=== PATIENT | male | born 1960 | race Hispanic/Latino ===

== ENCOUNTER 2023-10-30 17:55 | Emergency (ER) | payer OTHER, BC ==
[~2023-10-30] VITALS: Ht 170.2 cm; Wt 74.8 kg
[~2023-10-30 17:55] MED LIST: AMLO-258 PO; LISI20TA24 PO; METO-409 PO; TRAZ-187 PO; ZOLP10TA2
[2023-10-30 18:45] LABS: BASOPHILS # (AUTO) 0.05 K/uL (0.00-0.20); BASOPHILS % (AUTO) 0.6 % (0.0-5.0); EOSINOPHILS # (AUTO) 0.12 K/uL (0.00-0.70); EOSINOPHILS % (AUTO) 1.3 % (0.0-8.0); IMMATURE GRANULOCYTE ABSOLUTE 0.04 K/uL (0-1); LYMPHOCYTES # (AUTO) 1.3 K/uL (1.0-4.8); LYMPHOCYTES % (AUTO) 14.6 % (21.0-51.0); MEAN CORPUSCULAR HEMOGLOBIN 31.9 pg (27.0-33.0); MEAN CORPUSCULAR HGB CONC 32.4 g/dL (32.0-36.0); MEAN CORPUSCULAR VOLUME 98.3 fL (79-99); MONOCYTES # (AUTO) 0.5 K/uL (0.1-1.0); MONOCYTES % (AUTO) 5.4 % (3.0-13.0); NEUTROPHILS % (AUTO) 77.7 % (40.0-77.0); PLATELET COUNT (AUTO) 321 K/uL (130-400); RED BLOOD CELL COUNT(AUTO) 2.95 MIL/uL (4.50-6.20); RED CELL DISTRIBUTION WIDTH 14.3 % (11.0-15.5)
[2023-10-30 19:03] LABS: INR <= 0.93 (0.85-1.15); PROTHROMBIN TIME 10.6 SEC (9.6-11.6)
[2023-10-30 19:04] LABS: PARTIAL THROMBOPLASTIN TIME 26.4 SEC (26.3-35.5)
[2023-10-30 19:15] LABS: ALBUMIN 2.5 g/dL (3.5-5.0); BILIRUBIN,TOTAL 0.4 mg/dL (0.2-1.0); POTASSIUM 4.9 mmol/L (3.5-5.1); TOTAL PROTEIN, SERUM 6.3 g/dL (6.0-8.3)
[2023-10-30 19:23] LABS: CREATININE 8.3 mg/dL (0.5-1.5)
[2023-10-30 20:30] LABS: ABG BASE EXCESS 2.6 mmol/L (-2.0-3.0); ABG HCO3 28.2 mmol/L (21.0-28.0); ABG OXYGEN SATURATION 93.6 % (95.0-99.0); ABG PCO2 48 mmHg (35-48); ABG PH 7.385 (7.35-7.450); CARBON MONOXIDE 0.6; DEVICE COMMENT RA; HHb 6.3; VENT MODE, BG RA (ROOM AIR)
[2023-10-30 21:51] LABS: APPEARANCE,URINE CLOUDY (CLEAR); BILIRUBIN,URINE NEGATIVE (NEGATIVE); COLOR,URINE LIGHT-YELLOW (YELLOW); GLUCOSE, URINE (UA) 300 mg/dL (NEGATIVE); KETONES,URINE NEGATIVE (NEGATIVE); LEUKOCYTE ESTERASE ,URINE NEGATIVE Leu/uL (NEGATIVE); NITRATE,URINE NEGATIVE (NEGATIVE); PROTEIN,URINE 600 mg/dL (NEGATIVE); UROBILINOGEN,URINE 0.2 mg/dL (0.2-1.0)
[2023-10-30 21:53] LABS: ADD UA MICROSCOPIC YES
[2023-10-30 21:56] VITALS: BP 128/61; PULSE 50; RESP 17; O2SAT 96
[2023-10-30 21:56] LABS: BACTERIA,URINE RARE /HPF (None Seen); MUCUS,URINE RARE LPF (None Seen); OTHER CASTS, URINE 1 /LPF (None Seen)
== END 2023-10-31 00:01 ==
LOC: EDH 17:55
DX: R41.82 Altered mental status, unspecified (principal); E11.22 Type 2 diabetes mellitus with diabetic chronic kidney disease; N18.6 End stage renal disease; E87.1 Hypo-osmolality and hyponatremia; R47.01 Aphasia; Z79.899 Other long term (current) drug therapy; Z98.890 Other specified postprocedural states; Z88.0 Allergy status to penicillin
CPT/HCPCS: 36415; 36600; 70450; 71045; 80053; 81001; 82140; 82435; 82550; 82803; 82947; 83605; 84132; 84295; 84484; 85018; 85025; 85610; 85730; 87040; 87088; 93005

== ENCOUNTER 2024-12-12 15:38 | Inpatient (IN) | payer MEDICARE ==
[~2024-12-12] VITALS: Ht 165.1 cm; Wt 79.8 kg
[2024-12-12 16:36] LABS: BASOPHILS # (AUTO) 0.02 K/uL (0.00-0.20); BASOPHILS % (AUTO) 0.5 % (0.0-5.0); EOSINOPHILS # (AUTO) 0.13 K/uL (0.00-0.70); EOSINOPHILS % (AUTO) 3.2 % (0.0-8.0); IMMATURE GRANULOCYTE ABSOLUTE 0.02 K/uL (0-1); MEAN CORPUSCULAR HEMOGLOBIN 34.5 pg (27.0-33.0); MEAN CORPUSCULAR HGB CONC 32.2 g/dL (32.0-36.0); MONOCYTES # (AUTO) 0.3 K/uL (0.1-1.0); MONOCYTES % (AUTO) 8.2 % (3.0-13.0); NEUTROPHILS # (AUTO) 2.6 K/uL (1.8-7.7); NEUTROPHILS % (AUTO) 63.6 % (40.0-77.0); NUCLEATED RED BLOOD CELLS 1.7 % (0.0-0.19); PLATELET COUNT (AUTO) 148 K/uL (130-400); RED BLOOD CELL COUNT(AUTO) 1.71 MIL/uL (4.50-6.20); RED CELL DISTRIBUTION WIDTH 13.8 % (11.0-15.5)
[2024-12-12 16:46] LABS: INR 1.03 (0.85-1.15); PROTHROMBIN TIME 10.9 SEC (9.6-11.6)
[2024-12-12 16:47] LABS: PARTIAL THROMBOPLASTIN TIME 22.7 SEC (26.3-35.5)
[2024-12-12 16:50] LABS: HEMATOCRIT 18.3 % (42-54)
[2024-12-12 16:51] LABS: POTASSIUM 4.6 mmol/L (3.5-5.1)
[2024-12-12 16:54] LABS: CREATININE 8.8 mg/dL (0.5-1.3)
--- NOTE | 2024-12-12 17:38 | ERN ---
General Chief Complaint: Abnormal Labs Stated Complaint: LOW HEMOGLOBIN Time Seen by MD: 15:40 History of Present Illness Initial Comments 64-year-old male, history of stroke without deficit, hypertension, diabetes, ESRD on dialysis Monday, sent in by Dr. Stone (sql etl developer) for anemia. I was told he has a hemoglobin of 5.3. Patient does report he has been feeling fatigued and winded over the last few weeks. He denies any melena or other bleeding. He does report a history of anemia but has never required transfusions before. Allergies: Coded Allergies: Penicillins (Verified Allergy, Unknown, 08/29/16) Home Meds Reported Medications Amlodipine Besylate (Amlodipine Besylate) 10 Mg Tablet, 1 TAB PO HS 09/18/23 Metoprolol Succinate (Metoprolol Succinate) 100 Mg Tab.er.24h, 1 TAB PO DAILY 09/18/23 Zolpidem Tartrate (Ambien) 10 Mg Tablet, 10 MG HS for INSOMNIA 09/18/23 Lisinopril (Lisinopril) 20 Mg Tablet, 40 MG PO DAILY, TAB 03/06/23 Trazodone HCl (Trazodone HCl) 100 Mg Tablet, 100 MG PO HS, TAB TAKE 1 AND 1/2 TABLET AT HS 03/22/22 Past Medical History Past Medical History: A-Fib, CVA, Diabetes-Type II, High Cholesterol, Hypertension Medical History Other: CKD ON DIALYSIS, MYOPIA, MUSCLE WEAKNESS Past Surgical History: Other, LAVA Surgical History Other: NEPHRECTOMY ROS Dictation CONSTITUTIONAL: Generalized weakness fatigue HEAD/FACE: No signs of trauma. EENT: No eye pain, no blurred vision, no tearing, no double vision, no ear pain, no ear discharge, no nose pain, no nasal congestion, no throat pain, no throat swelling, no mouth pain. RESPIRATORY: Mild dyspnea CARDIOVASCULAR: No chest pain, no edema, no palpitations, no syncope. GASTROINTESTINAL/ABDOMINAL: No abdominal pain, no constipation, no diarrhea, no nausea, no vomiting. GENITOURINARY: No abnormal discharge, no dysuria, no frequent urination, no hematuria. No complaints of pain in the genitals. MUSCULOSKELETAL: No back pain, no gout, no joint pain, no joint swelling, no muscle pain, no muscle stiffness, no neck pain. INTEGUMENTARY: No change in color, no change in hair/nails, no dryness, no lesion, no lumps, no rash. NEUROLOGICAL/PSYCH: No anxiety, not depressed, no emotional problem, no headache, no numbness, no pre-existing deficit, no history of seizures, no tremors, no weakness. HEMATOLOGIC/LYMPHATIC: Not anemic, no history of blood clots, no apparent bleeding, no bruising, glands not swollen. All Systems Negative, Except as Noted. Physical Exam Physical Exam Dictation VITAL SIGNS: Reviewed. GENERAL APPEARANCE: Alert, oriented x3, no acute distress HEAD AND FACE: Non-traumatic. EYES: PERRL, pink conjunctivas, eyelid no trauma, anterior chamber clear. EARS: Pinnas intact and no signs of trauma or erythema. Ear canals clear and no discharge. TMs no erythema. NOSE: No discharge, no bleeding. OROPHARYNX: Mouth normal, teeth no caries, tongue pink. Pharynx clear, no erythema. Tonsils no exudates, no abscesses noted. Mucous membrane moist. NECK: Supple, non-tender, no thyromegaly, no masses, no JVD, no bruits. BREAST: Deferred. CHEST: No tenderness, no crepitus, no paradoxical movement, no retractions. LUNGS: Clear, well-ventilated, symmetric, no rales, no wheezing, no rhonchi, no stridor, good breath sounds bilaterally. HEART: Regular rate, regular rhythm, no murmur, no gallops. VASCULAR: No peripheral edema. ABDOMEN: Soft, positive bowel sounds, nondistended, no guarding, nontender, no rebound, no masses no hepatomegaly, no splenomegaly, no Doyle's sign, no hernias. RECTAL: Deferred. GENITAL: Deferred. NEUROLOGICAL: Normal speech, gross motor function intact, gross sensory function intact. MUSCULOSKELETAL: Neck nontender, full range of motion, back nontender, full range of motion. EXTREMITIES: Nontender, full range of motion. SKIN: Color pink, dry, no turgor, no rash, no lacerations, no abrasions, no contusions. LYMPHATICS: Deferred. Results Laboratory and Microbiology Lab and Micro Result Laboratory Tests Test 12/12/24 16:23 White Blood Count 4.0 K/uL (4.8-10.8) L Red Blood Count 1.71 MIL/uL (4.50-6.20) L Hemoglobin 5.9 g/dL (14.0-18.0) *L Hematocrit 18.3 % (42-54) *L Mean Corpuscular Volume 107.0 fL (79-99) H Mean Corpuscular Hemoglobin 34.5 pg (27.0-33.0) H Mean Corpuscular Hemoglobin Concent 32.2 g/dL (32.0-36.0) Red Cell Distribution Width 13.8 % (11.0-15.5) Platelet Count 148 K/uL (130-400) Mean Platelet Volume 9.5 fL (7.5-10.5) Immature Granulocyte % (Auto) 0.5 % (0-1) Neutrophils (%) (Auto) 63.6 % (40.0-77.0) Lymphocytes (%) (Auto) 24.0 % (21.0-51.0) Monocytes (%) (Auto) 8.2 % (3.0-13.0) Eosinophils (%) (Auto) 3.2 % (0.0-8.0) Basophils (%) (Auto) 0.5 % (0.0-5.0) Neutrophils # (Auto) 2.6 K/uL (1.8-7.7) Lymphocytes # (Auto) 1.0 K/uL (1.0-4.8) Monocytes # (Auto) 0.3 K/uL (0.1-1.0) Eosinophils # (Auto) 0.13 K/uL (0.00-0.70) Basophils # (Auto) 0.02 K/uL (0.00-0.20) Absolute Immature Granulocyte (auto 0.02 K/uL (0-1) Nucleated Red Blood Cells 1.7 % (0.0-0.19) H Red Blood Cell Morphology See comments Prothrombin Time 10.9 SEC (9.6-11.6) Prothromb Time International Ratio 1.03 (0.85-1.15) Activated Partial Thromboplast Time 22.7 SEC (26.3-35.5) L Sodium Level 135 mmol/L (136-145) L Potassium Level 4.6 mmol/L (3.5-5.1) Chloride Level 97 mmol/L (101-111) L Carbon Dioxide Level 34 mmol/L (21-32) H Blood Urea Nitrogen 31 mg/dL (7-18) H Creatinine 8.8 mg/dL (0.5-1.3) *H Glomerular Filtration Rate Calc 6 mL/min (>90) Random Glucose 117 mg/dL (70-105) H Total Calcium 8.3 mg/dL (8.5-10.1) L MDM CC: Fatigue and weakness low hemoglobin Historian: Patient Comorbidities: AFib, CVA, dm two, DLD, HTN, CKD on dialysis Limitations by social determinants of health: None Differential diagnosis: Anemia, electrolyte abnormalities, other. Vital signs: Stable, remained stable in the ER Labs (independently ordered and interpreted by me): Macrocytic anemia hemoglobin 5.9. Otherwise CBC is stable. Coags are stable. Electrolytes stable. Creatinine 8.8 baseline for dialysis. EKG: Sinus rhythm rate of 59 normal axis good R-wave progression intervals stable no STEMI. Independently interpreted by me Treatment in ED: 2 units PRBC. Plan: We will admit for anemia workup, transfusion. Patient may need dialysis tomorrow. Consultation: Hospitalist for admission. ED Course Orders Procedure Category Date Status Time Cbc With Differential LAB 12/12/24 Complete 15:57 Basic Metabolic Panel LAB 12/12/24 Complete 15:57 Prothrombin Time With LAB 12/12/24 Complete INR 15:57 Partial LAB 12/12/24 Complete Thromboplastin Time 15:57 Occult Blood Stool LAB 12/12/24 Logged Single Only 15:57 Type And Screen BBK 12/12/24 In Process 16:14 Rbc-Active Bleeding BBK 12/12/24 In Process 17:13 12 Lead Ekg Tracing- EKG 12/12/24 Logged Technical 17:38 Vital Signs Date Time Temp Pulse Resp B/P (MAP) Pulse Ox O2 Delivery O2 Flow Rate FiO2 12/12/24 17:24 98.4 64 18 153/69 98 Room Air* 0 21 12/12/24 15:40 98.4 62 16 149/82 98 Room Air 0 DX & DISP Disposition: Inpatient Departure Impression: Primary Impression: Anemia requiring transfusions Additional Impression: ESRD on dialysis Critical Time: 30 minutes (Critical Care Procedure NoteAuthorized and Performed by: meTotal critical care time: Approximately 36 minutesDue to a high p robability of clinically significant, life threatening deterioration, the patient required my highest level of preparedness to intervene emergently and I personally spent this critical care time directly and personally managing the patient. This critical care time included obtaining a history; examining the patient; pulse oximetry; ordering and review of studies; arranging urgent t reatment with development of a management plan; evaluation of patient's response to treatment; frequent reassessment; and, discussions with other providers.This critical care time was performed to assess and manage the high probability of imminent, life-threatening deterioration that could result in multi-organ failure. It was exclusive of separately billable procedures and treating other patients and teaching time.Please see MDM section and the rest of the note for further information on patient assessment and treatment.) Condition: Stable Referrals: WALLY BYERS MD (PCP) HEENA AMAYA DO Dec 12, 2024 17:38
--- NOTE | 2024-12-12 19:20 | NUR ---
BLOOD TRANSFUSION DONE AT THIS TIME.
--- NOTE | 2024-12-12 19:55 | NUR ---
2ND UNIT OF BLOOD TRANSFUSION STARTED AT THIS TIME. PLS REFER TO BLOOF TRANSFUSION RECORD
[2024-12-12 22:47] LABS: FERRITIN 876 ng/mL (30-400)
--- NOTE | 2024-12-12 22:56 | HP ---
HISTORY AND PHYSICAL NOTE DATE OF CONSULTATION: 12/12/24 REASON FOR CONSULTATION: Weakness HISTORY OF PRESENT ILLNESS: 64-year-old male, history of stroke without deficit, hypertension, diabetes, ESRD on dialysis Monday, sent in by Dr. Stone (postpartum nurse) for anemia. I was told he has a hemoglobin of 5.3. Patient does report he has been feeling fatigued and winded over the last few weeks. He denies any melena or other bleeding. He does report a history of anemia but has never required transfusions before. Allergies: Coded Allergies: Penicillins (Verified Allergy, Unknown, 08/29/16) Home Meds Reported Medications Amlodipine Besylate (Amlodipine Besylate) 10 Mg Tablet, 1 TAB PO HS 09/18/23 Metoprolol Succinate (Metoprolol Succinate) 100 Mg Tab.er.24h, 1 TAB PO DAILY 09/18/23 Zolpidem Tartrate (Ambien) 10 Mg Tablet, 10 MG HS for INSOMNIA 09/18/23 Lisinopril (Lisinopril) 20 Mg Tablet, 40 MG PO DAILY, TAB 03/06/23 Trazodone HCl (Trazodone HCl) 100 Mg Tablet, 100 MG PO HS, TAB TAKE 1 AND 1/2 TABLET AT HS 03/22/22 Past History Past Medical History Past Medical History: A-Fib, CVA, Diabetes-Type II, High Cholesterol, Hypertension Medical History Other: CKD ON DIALYSIS, MYOPIA, MUSCLE WEAKNESS Past Surgical History: Other, LAVA Surgical History Other: NEPHRECTOMY Review of Systems ROS Dictation CONSTITUTIONAL: Generalized weakness fatigue HEAD/FACE: No signs of trauma. EENT: No eye pain, no blurred vision, no tearing, no double vision, no ear pain, no ear discharge, no nose pain, no nasal congestion, no throat pain, no throat swelling, no mouth pain. RESPIRATORY: Mild dyspnea CARDIOVASCULAR: No chest pain, no edema, no palpitations, no syncope. GASTROINTESTINAL/ABDOMINAL: No abdominal pain, no constipation, no diarrhea, no nausea, no vomiting. GENITOURINARY: No abnormal discharge, no dysuria, no frequent urination, no hematuria. No complaints of pain in the genitals. MUSCULOSKELETAL: No back pain, no gout, no joint pain, no joint swelling, no muscle pain, no muscle stiffness, no neck pain. INTEGUMENTARY: No change in color, no change in hair/nails, no dryness, no lesion, no lumps, no rash. NEUROLOGICAL/PSYCH: No anxiety, not depressed, no emotional problem, no headache, no numbness, no pre-existing deficit, no history of seizures, no tremors, no weakness. HEMATOLOGIC/LYMPHATIC: Not anemic, no history of blood clots, no apparent bleeding, no bruising, glands not swollen. All Systems Negative, Except as Noted. ALLERGIES: Coded Allergies: Penicillins (Verified Allergy, Unknown, 08/29/16) HOME MEDS: Reported Medications Amlodipine Besylate (Amlodipine Besylate) 10 Mg Tablet, 1 TAB PO HS 09/18/23 Metoprolol Succinate (Metoprolol Succinate) 100 Mg Tab.er.24h, 1 TAB PO DAILY 09/18/23 Zolpidem Tartrate (Ambien) 10 Mg Tablet, 10 MG HS for INSOMNIA 09/18/23 Lisinopril (Lisinopril) 20 Mg Tablet, 40 MG PO DAILY, TAB 03/06/23 Trazodone HCl (Trazodone HCl) 100 Mg Tablet, 100 MG PO HS, TAB TAKE 1 AND 1/2 TABLET AT HS 03/22/22 VITAL SIGNS Vital Signs Date Time Temp Pulse Resp B/P (MAP) Pulse Ox O2 Delivery O2 Flow Rate FiO2 12/12/24 19:59 98.2 60 15 165/78 97 Room Air* 0 12/12/24 19:55 98.1 61 16 156/73 97 Room Air* 0 12/12/24 18:10 97.9 65 16 157/82 98 Room Air* 0 12/12/24 17:24 98.4 64 18 153/69 98 Room Air* 0 12/12/24 15:40 98.4 62 16 149/82 98 Room Air 0 PHYSICAL EXAM Physical Exam Physical Exam Physical Exam Dictation VITAL SIGNS: Reviewed. GENERAL APPEARANCE: Alert, oriented x3, no acute distress HEAD AND FACE: Non-traumatic. EYES: PERRL, pink conjunctivas, eyelid no trauma, anterior chamber clear. EARS: Pinnas intact and no signs of trauma or erythema. Ear canals clear and no discharge. TMs no erythema. NOSE: No discharge, no bleeding. OROPHARYNX: Mouth normal, teeth no caries, tongue pink. Pharynx clear, no erythema. Tonsils no exudates, no abscesses noted. Mucous membrane moist. NECK: Supple, non-tender, no thyromegaly, no masses, no JVD, no bruits. BREAST: Deferred. CHEST: No tenderness, no crepitus, no paradoxical movement, no retractions. LUNGS: Clear, well-ventilated, symmetric, no rales, no wheezing, no rhonchi, no stridor, good breath sounds bilaterally. HEART: Regular rate, regular rhythm, no murmur, no gallops. VASCULAR: No peripheral edema. ABDOMEN: Soft, positive bowel sounds, nondistended, no guarding, nontender, no rebound, no masses no hepatomegaly, no splenomegaly, no Doyle's sign, no her nias. RECTAL: Deferred. GENITAL: Deferred. NEUROLOGICAL: Normal speech, gross motor function intact, gross sensory function intact. MUSCULOSKELETAL: Neck nontender, full range of motion, back nontender, full range of motion. EXTREMITIES: Nontender, full range of motion. SKIN: Color pink, dry, no turgor, no rash, no lacerations, no abrasions, no contusions. LYMPHATICS: Deferred. LABORATORY RESULTS Laboratory Tests 12/12/24 16:23: White Blood Count 4.0, Red Blood Count 1.71, Hemoglobin 5.9, Hematocrit 18.3, Mean Corpuscular Volume 107.0, Mean Corpuscular Hemoglobin 34.5, Mean Corpuscu lar Hemoglobin Concent 32.2, Red Cell Distribution Width 13.8, Platelet Count 148, Mean Platelet Volume 9.5, Immature Granulocyte % (Auto) 0.5, Neutrophils (%) (Auto) 63.6, Lymphocytes (%) (Auto) 24.0, Monocytes (%) (Auto) 8.2, Eosinophils (%) (Auto) 3.2, Basophils (%) (Auto) 0.5, Neutrophils # (Auto) 2.6, Lymphocytes # (Auto) 1.0, Monocytes # (Auto) 0.3, Eosinophils # (Auto) 0.13, Basophils # (Auto) 0.02, Absolute Immature Granulocyte (auto 0.02, Nucleated Red Blood Cells 1.7, Red Blood Cell Morphology See comments, Prothrombin Time 10.9, Prothromb Time International Ratio 1.03, Activated Partial Thromboplast Time 22.7, Sodium Level 135, Potassium Level 4.6, Chloride Level 97, Carbon Dioxide Level 34, Blood Urea Nitrogen 31, Creatinine 8.8, Glomerular Filtration Rate Calc 6, Random Glucose 117, Total Calcium 8.3, Ferritin 876, Vitamin B12 Level 657 PROBLEM LIST: (1) Hyponatremia ICD Codes: E87.1 - Hypo-osmolality and hyponatremia (2) End stage renal disease on dialysis ICD Codes: N18.6 - End stage renal disease; Z99.2 - Dependence on renal dialysis (3) ESRD on dialysis ICD Codes: N18.6 - End stage renal disease; Z99.2 - Dependence on renal dialysis (4) Anemia requiring transfusions ICD Codes: D64.9 - Anemia, unspecified; Z99.2 - Dependence on renal dialysis PLAN Transfuse blood Consult Nephrology Sliding scale for diabetes Resume home medications for hypertension WALLY BYERS MD Dec 12, 2024 22:56
[2024-12-12] MEDS ORDERED: AMLO-257 PO (22:58)
[2024-12-12] MEDS ORDERED: LEVE-43 PO (22:58)
[2024-12-12] MEDS ORDERED: FAMO20TA8 PO (22:58)
[2024-12-12] MEDS ORDERED: TRAZ-185 PO (22:58)
[2024-12-12] MEDS ORDERED: CARB15DR OP (22:58)
[2024-12-12] MEDS ORDERED: FOLI0.8T22 PO (22:58)
[2024-12-12] MEDS ORDERED: LISI40TA9 PO (22:58)
[2024-12-12] MEDS ORDERED: CHOL100046 PO (22:58)
[2024-12-12] MEDS ORDERED: ACET-2079 PO (22:58)
[2024-12-12] MEDS ORDERED: MELA3CAP2 PO (22:58)
[2024-12-12] MEDS ORDERED: PRED5DRO25 OS (22:58)
[2024-12-12] MEDS ORDERED: INSU3INS3 SQ (22:58)
[2024-12-12] MEDS ORDERED: DONE5TAB5 PO (22:58)
[2024-12-12] MEDS ORDERED: LACT10SO85 PO (22:58)
[2024-12-12] MEDS ORDERED: CLON0.1T PO (22:58)
[2024-12-12] MEDS ORDERED: ASPI-1197 PO (22:58)
[2024-12-12] MEDS ORDERED: METO100T14 PO (22:58)
[2024-12-12] MEDS ORDERED: ATOR10TA69 PO (22:58)
[2024-12-12] MEDS ORDERED: BENZ1LOZ81 PO (22:58)
[2024-12-12] MEDS ORDERED: ACET-3859 PO (22:58)
[2024-12-12] MEDS ORDERED: SEVE800PW PO (22:58)
[2024-12-12] MEDS ORDERED: CALC500T13 PO (22:58)
[2024-12-12] MEDS ORDERED: GUAI100S72 PO (22:58)
--- NOTE | 2024-12-12 23:30 | NUR ---
BLOOD TRANSFUSION DONE AT THIS TIME
[2024-12-13] VITALS (17 sets, daily range): BP systolic 130–162; BP diastolic 43–70; PULSE 47–78; RESP 16; TEMP 97.4–98; O2SAT 97
[2024-12-13 05:52] LABS: BASOPHILS # (AUTO) 0.02 K/uL (0.00-0.20); BASOPHILS % (AUTO) 0.4 % (0.0-5.0); EOSINOPHILS # (AUTO) 0.14 K/uL (0.00-0.70); EOSINOPHILS % (AUTO) 2.6 % (0.0-8.0); HEMATOCRIT 24.8 % (42-54); IMMATURE GRANULOCYTE ABSOLUTE 0.03 K/uL (0-1); LYMPHOCYTES # (AUTO) 1.2 K/uL (1.0-4.8); LYMPHOCYTES % (AUTO) 21.6 % (21.0-51.0); MEAN CORPUSCULAR HEMOGLOBIN 32.9 pg (27.0-33.0); MEAN CORPUSCULAR HGB CONC 32.7 g/dL (32.0-36.0); MEAN CORPUSCULAR VOLUME 100.8 fL (79-99); MONOCYTES # (AUTO) 0.4 K/uL (0.1-1.0); MONOCYTES % (AUTO) 7.1 % (3.0-13.0); NEUTROPHILS # (AUTO) 3.7 K/uL (1.8-7.7); NEUTROPHILS % (AUTO) 67.7 % (40.0-77.0); NUCLEATED RED BLOOD CELLS 0.4 % (0.0-0.19); PLATELET COUNT (AUTO) 147 K/uL (130-400); RED BLOOD CELL COUNT(AUTO) 2.46 MIL/uL (4.50-6.20); RED CELL DISTRIBUTION WIDTH 16.3 % (11.0-15.5); WHITE BLOOD COUNT (AUTO) 5.4 K/uL (4.8-10.8)
[2024-12-13 06:14] LABS: ALBUMIN 3.8 g/dL (3.5-5.0); BILIRUBIN,TOTAL 0.8 mg/dL (0.2-1.0); POTASSIUM 5.3 mmol/L (3.5-5.1); TOTAL PROTEIN, SERUM 6.9 g/dL (6.0-8.3)
[2024-12-13 06:20] LABS: CREATININE 10.1 mg/dL (0.5-1.3)
--- NOTE | 2024-12-13 07:10 | EKG ---
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
--- NOTE | 2024-12-13 10:18 | NUR ---
DCP: RETURN TO [facility] Pt lives with his parents Dania Call [address] and Andre [address] [phone]. Pt wears hearing aids and did not bring with him. Per mother, pt is not working, is independent of self care and drives. Uses no DME or in home care services at this time. [facility], but pt has never been. Uses [facility] for rx. Per mother, pt will return home with family at [place] Addendum: 12/13/24 at 1243 by ERIC GOLDMAN PLEASE DISREGARD NOTE- WRONG PT
--- NOTE | 2024-12-13 10:19 | HMCIMG ---
Exam Type: CT ABDOMEN/PELVIS W/O CONTRAST Clinical Information: HX KIDNEY CANCER Comparison: March 08, 2023 CT Dose Index (CTDI): 10.20 mGy Dose Length Product (DLP): 530.00 total mGy-cm PROTOCOL: Routine noncontrast helical scanning of the abdomen and pelvis was performed at 5mm collimation. Findings: The right kidney is atrophic but otherwise unremarkable. The left kidney surgically absent. The lung bases are clear. The stomach is unremarkable. It shows no wall thickening. No gross ulceration is seen. It is not overly distended. There are no surrounding inflammatory changes. No wall lesions are identified to suggest cancer. The spleen is unremarkable. It is not enlarged. The pancreas again demonstrates a partially calcified lesion inferior to the tail region measuring at least 4.3 cm, probably representing a calcified pancreatic pseudocyst. This is stable since the examination of March 08, 2023. The gallbladder is unremarkable. It shows no cholelithiasis. The gallbladder wall is normal in thickness. There is no pericholecystic fluid. The is no acute or chronic inflammation noted. The adrenal glands are unremarkable. There is no enlargement. No lesions are noted. The liver is unremarkable. It shows no focal masses. The appendix is unremarkable. It shows no evidence of inflammation. No appendicolith is seen. The small bowel is unremarkable. There is no evidence of dilatation to suggest obstruction. No evidence of adynamic ileus is seen. There is no small bowel wall thickening to suggest enteritis. The colon is unremarkable. The urinary bladder is unremarkable. There is no wall thickening to suggest tumor or inflammation. There are no intraluminal calculi. There are no diverticula. There is no evidence of chronic bladder outlet obstruction. There is no evidence of urinary bladder distention to suggest urinary retention. The prostate is prominent. The bony and vascular structures are unremarkable for the patient's age. IMPRESSION: The pancreas again demonstrates a partially calcified lesion inferior to the tail region measuring at least 4.3 cm, probably representing a calcified pancreatic pseudocyst. This is stable since the examination of March 08, 2023. Other findings as described. This study was performed using dose reduction techniques to include automated exposure control and/or adjustment of the mA and/or kV according to patient size.
[2024-12-13] MEDS: ASPIRIN 81MG CHEW TAB ONE (10:23)
[2024-12-13] MEDS: amLODIPine 5 MG TAB ONE (10:23)
[2024-12-13] MEDS: FAMOTIDINE 20MG TAB ONE (10:23)
[2024-12-13] MEDS ORDERED: LACTULOSE 20 GM/30 ML UDCUP PO PRN (10:30)
[2024-12-13] MEDS ORDERED: cloNIDine HCL 0.1 MG TABLET PO PRN (10:30)
[2024-12-13] MEDS ORDERED: NON-FORMULARY MEDICATION 1 EACH (Carboxymethylcellulose Sodium (Refresh Tears) 1 DROP) OP PRN (10:30)
--- NOTE | 2024-12-13 12:34 | PN ---
PROGRESS NOTE PROGRESS NOTE DATE OF PROGRESS NOTE: 12/13/24 SUBJECTIVE: No obvious GI bleed or any bruising to account for loss of blood VITAL SIGNS Vital Signs Date Time Temp Pulse Resp B/P (MAP) Pulse Ox O2 Delivery O2 Flow Rate FiO2 12/13/24 11:05 98.2 68 16 123/55 97 Room Air* 0 21 PHYSICAL EXAM: Physical Exam Physical Exam Physical Exam Dictation VITAL SIGNS: Reviewed. GENERAL APPEARANCE: Alert, oriented x3, no acute distress HEAD AND FACE: Non-traumatic. EYES: PERRL, pink conjunctivas, eyelid no trauma, anterior chamber clear. EARS: Pinnas intact and no signs of trauma or erythema. Ear canals clear and no discharge. TMs no erythema. NOSE: No discharge, no bleeding. OROPHARYNX: Mouth normal, teeth no caries, tongue pink. Pharynx clear, no erythema. Tonsils no exudates, no abscesses noted. Mucous membrane moist. NECK: Supple, non-tender, no thyromegaly, no masses, no JVD, no bruits. BREAST: Deferred. CHEST: No tenderness, no crepitus, no paradoxical movement, no retractions. LUNGS: Clear, well-ventilated, symmetric, no rales, no wheezing, no rhonchi, no stridor, good breath sounds bilaterally. HEART: Regular rate, regular rhythm, no murmur, no gallops. VASCULAR: No peripheral edema. ABDOMEN: Soft, positive bowel sounds, nondistended, no guarding, nontender, no rebound, no masses no hepatomegaly, no splenomegaly, no Doyle's sign, no hernias. RECTAL: Deferred. GENITAL: Deferred. NEUROLOGICAL: Normal speech, gross motor function intact, gross sensory function intact. MUSCULOSKELETAL: Neck nontender, full range of motion, back nontender, full range of motion. EXTREMITIES: Nontender, full range of motion. SKIN: Color pink, dry, no turgor, no rash, no lacerations, no abrasions, no contusions. LYMPHATICS: Deferred. LABORATORY: Laboratory Result(s) Test 12/12/24 16:23 12/13/24 05:20 White Blood Count 4.0 K/uL (4.8-10.8) 5.4 K/uL (4.8-10.8) Red Blood Count 1.71 MIL/uL (4.50-6.20) 2.46 MIL/uL (4.50-6.20) Hemoglobin 5.9 g/dL (14.0-18.0) 8.1 g/dL (14.0-18.0) Hematocrit 18.3 % (42-54) 24.8 % (42-54) Mean Corpuscular Volume 107.0 fL (79-99) 100.8 fL (79-99) Mean Corpuscular Hemoglobin 34.5 pg (27.0-33.0) 32.9 pg (27.0-33.0) Mean Corpuscular Hemoglobin Concent 32.2 g/dL (32.0-36.0) 32.7 g/dL (32.0-36.0) Red Cell Distribution Width 13.8 % (11.0-15.5) 16.3 % (11.0-15.5) Platelet Count 148 K/uL (130-400) 147 K/uL (130-400) Mean Platelet Volume 9.5 fL (7.5-10.5) 9.7 fL (7.5-10.5) Immature Granulocyte % (Auto) 0.5 % (0-1) 0.6 % (0-1) Neutrophils (%) (Auto) 63.6 % (40.0-77.0) 67.7 % (40.0-77.0) Lymphocytes (%) (Auto) 24.0 % (21.0-51.0) 21.6 % (21.0-51.0) Monocytes (%) (Auto) 8.2 % (3.0-13.0) 7.1 % (3.0-13.0) Eosinophils (%) (Auto) 3.2 % (0.0-8.0) 2.6 % (0.0-8.0) Basophils (%) (Auto) 0.5 % (0.0-5.0) 0.4 % (0.0-5.0) Neutrophils # (Auto) 2.6 K/uL (1.8-7.7) 3.7 K/uL (1.8-7.7) Lymphocytes # (Auto) 1.0 K/uL (1.0-4.8) 1.2 K/uL (1.0-4.8) Monocytes # (Auto) 0.3 K/uL (0.1-1.0) 0.4 K/uL (0.1-1.0) Eosinophils # (Auto) 0.13 K/uL (0.00-0.70) 0.14 K/uL (0.00-0.70) Basophils # (Auto) 0.02 K/uL (0.00-0.20) 0.02 K/uL (0.00-0.20) Absolute Immature Granulocyte (auto 0.02 K/uL (0-1) 0.03 K/uL (0-1) Nucleated Red Blood Cells 1.7 % (0.0-0.19) 0.4 % (0.0-0.19) Red Blood Cell Morphology See comments Prothrombin Time 10.9 SEC (9.6-11.6) Prothromb Time International Ratio 1.03 (0.85-1.15) Activated Partial Thromboplast Time 22.7 SEC (26.3-35.5) Sodium Level 135 mmol/L (136-145) 138 mmol/L (136-145) Potassium Level 4.6 mmol/L (3.5-5.1) 5.3 mmol/L (3.5-5.1) Chloride Level 97 mmol/L (101-111) 101 mmol/L (101-111) Carbon Dioxide Level 34 mmol/L (21-32) 29 mmol/L (21-32) Blood Urea Nitrogen 31 mg/dL (7-18) 36 mg/dL (7-18) Creatinine 8.8 mg/dL (0.5-1.3) 10.1 mg/dL (0.5-1.3) Glomerular Filtration Rate Calc 6 mL/min (>90) 5 mL/min (>90) Random Glucose 117 mg/dL (70-105) 107 mg/dL (70-105) Total Calcium 8.3 mg/dL (8.5-10.1) 8.5 mg/dL (8.5-10.1) Ferritin 876 ng/mL (30-400) Vitamin B12 Level 657 pg/mL (193-986) Vitamin D 25-Hydroxy 48.7 ng/mL (30.0-100.0) Total Bilirubin 0.8 mg/dL (0.2-1.0) Aspartate Amino Transf (AST/SGOT) 34 U/L (10-37) Alanine Aminotransferase (ALT/SGPT) 29 U/L (12-78) Alkaline Phosphatase 120 U/L (50-136) Total Protein 6.9 g/dL (6.0-8.3) Albumin 3.8 g/dL (3.5-5.0) INPATIENT MEDS: Current Medications Medications Dose Ordered Sig/Letty Start Time Stop Time Status Last Admin Amlodipine Besylate 5 mg DAILY 12/14/24 09:00 01/13/25 08:59 Aspirin 81 mg DAILY 12/14/24 09:00 01/13/25 08:59 Atorvastatin Calcium 10 mg HS 12/13/24 21:00 01/12/25 20:59 Clonidine HCl 0.1 mg Q4HPRN PRN 12/13/24 10:30 01/12/25 10:29 Donepezil HCl 5 mg HS 12/13/24 21:00 01/12/25 20:59 Famotidine 20 mg DAILY 12/14/24 09:00 01/13/25 08:59 Lactulose 20 gm TID PRN 12/13/24 10:30 01/12/25 10:29 Levetiracetam 500 mg BID 12/13/24 21:00 01/12/25 20:59 Lisinopril 40 mg HS 12/13/24 21:00 01/12/25 20:59 Home Med DAILY 12/14/24 09:00 01/13/25 08:59 Vitamin B Complex/ Vit C/Folic Acid 1 cap DAILY 12/14/24 09:00 01/13/25 08:59 Insulin Glargine 10 units HS 12/13/24 21:00 01/12/25 20:59 Metoprolol Succinate 100 mg DAILY 12/14/24 09:00 01/13/25 08:59 Home Med TID 12/13/24 14:00 01/12/25 13:59 Sodium Chloride 1,000 ml @ 0 mls/hr ONCE 12/13/24 11:30 01/12/25 11:29 PROBLEM LIST: (1) Hyponatremia ICD Code: E87.1 - Hypo-osmolality and hyponatremia (2) End stage renal disease on dialysis ICD Code: N18.6 - End stage renal disease; Z99.2 - Dependence on renal dialysis (3) ESRD on dialysis ICD Code: N18.6 - End stage renal disease; Z99.2 - Dependence on renal dialysis (4) Anemia requiring transfusions ICD Code: D64.9 - Anemia, unspecified; Z99.2 - Dependence on renal dialysis PLAN: Transfuse blood Consult Nephrology Sliding scale for diabetes Resume home medications for hypertension Discharge once anemia is corrected WALLY BYERS MD Dec 13, 2024 12:34
--- NOTE | 2024-12-13 12:43 | NUR ---
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 States [facility] takes him to dialysis treatments MWF at 10am. Pt has no DME and states his needs at met by facility. Rao Loyn [phone], is er contact. Pt signed consent to return to [facility] at [place]. SW spoke to [facility] at [facility]. P was sent for blood transfusion and should return once completed.
[2024-12-13] MEDS: SEVELAMER CARBONATE 4000 MG PO SCH (14:00)
[2024-12-13] MEDS: 0.9%NACL 1000ML 1,000 ML IV SCH (14:38)
--- NOTE | 2024-12-13 16:45 | CONS ---
NEPHROLOGY CONSULTATION NOTE Date/Time Patient Seen: Dec 13, 2024 1525 Reason for Consultation: Anemia, end-stage renal disease HISTORY OF PRESENT ILLNESS: This is a 64-year-old male with a past medical history of end-stage renal disease on hemodialysis Monday, CVA, hypertension, diabetes mellitus type II, renal cell carcinoma S/p left nephrectomy, anemia, atrial fibrillation He presented to the emergency room with complaints of hemoglobin of 5.3. Upon arrival hemoglobin was 5.1 grams/deciliter. S/p2 units of PRBC transfusion. Repeat hemoglobin this morning 8.1 grams/deciliter. He is due for dialysis today He was seen in the emergency room, in no acute distress No family at the bedside REVIEW OF SYSTEMS: GENERAL: Negative for any nausea, vomiting, fevers, chills, or weight loss. NEUROLOGIC: Negative for any blurry vision, blind spots, double vision, facial asymmetry, dysphagia, dysarthria, hemiparesis, hemisensory deficits, vertigo, ataxia. HEENT: Negative for any head trauma, neck trauma, neck stiffness, photophobia, phonophobia, sinusitis, rhinitis. CARDIAC: Negative for any chest pain, dyspnea on exertion, paroxysmal nocturnal dyspnea, peripheral edema. PULMONARY: Negative for any shortness of breath, wheezing, COPD, or TB exposure. GASTROINTESTINAL: Negative for any abdominal pain, nausea, vomiting, bright red blood per rectum, melena. GENITOURINARY: Negative for any dysuria, hematuria, incontinence. INTEGUMENTARY: Negative for any rashes, cuts, insect bites. RHEUMATOLOGIC: Negative for any joint pains, photosensitive rashes, history of vasculitis or kidney problems. HEMATOLOGIC: Negative for any abnormal bruising, frequent infections or bleeding. PAST MEDICAL HISTORY: End-stage renal disease on hemodialysis Monday, CVA, hypertension, diabetes mellitus type II, renal cell carcinoma S/p left nephrectomy, anemia, atrial fibrillation, PAST SURGICAL HISTORY: Left forearm AV fistula Left nephrectomy PAST SOCIAL HISTORY: Denies use of alcohol, tobacco or illicit drugs FAMILY HISTORY: Noncontributory PHYSICAL EXAM: GENERAL: Alert and oriented x 3. No acute distress. Well-nourished. EYES: EOMI. Anicteric. HENT: Moist mucous membranes. No scleral icterus. No cervical lymphadenopathy. LUNGS: Clear to auscultation bilaterally. No accessory muscle use. CARDIOVASCULAR: Regular rate and rhythm. No murmur. No JVD. ABDOMEN: Soft, non-tender and non-distended. No palpable masses. EXTREMITIES: No edema. Non-tender. SKIN: No rashes or lesions. Warm. NEUROLOGIC: No focal neurological deficits. CN II-XII grossly intact, but not individually tested. PSYCHIATRIC: Cooperative. Appropriate mood and affect. MEDICATIONS: [ ] Current Medications Medications (Trade) Dose Ordered Sig/Letty Route PRN Reason Start Time Stop Time Status Last Admin Dose Admin Amlodipine Besylate (NorvASC 5MG TAB) 5 mg DAILY PO 12/14/24 09:00 01/13/25 08:59 Aspirin (Aspirin 81mg Chew Tab) 81 mg DAILY PO 12/14/24 09:00 01/13/25 08:59 Atorvastatin Calcium (LIPItor 10MG) 10 mg HS PO 12/13/24 21:00 01/12/25 20:59 Clonidine HCl (CATApres 0.1 mg TAB) 0.1 mg Q4HPRN PRN PO IF SBP GREATER THAN 180 12/13/24 10:30 01/12/25 10:29 Donepezil HCl (ARIcept 5MG TAB) 5 mg HS PO 12/13/24 21:00 01/12/25 20:59 Famotidine (Pepcid 20mg Tab) 20 mg DAILY PO 12/14/24 09:00 01/13/25 08:59 Home Med (Home Medication) DAILY PO 12/14/24 09:00 01/13/25 08:59 Home Med (Home Medication) TID PO 12/13/24 14:00 01/12/25 13:59 Insulin Glargine (LANtus 100 UNITS/ML 10 ML VIAL) 10 units HS SQ 12/13/24 21:00 01/12/25 20:59 Lactulose (Constulose 20gm/ 30ml Udcup) 20 gm TID PRN PO CONSTIPATION 12/13/24 10:30 01/12/25 10:29 Levetiracetam (kepPRA 500 MG TABLET) 500 mg BID PO 12/13/24 21:00 01/12/25 20:59 Lisinopril (Prinivil 40mg) 40 mg HS PO 12/13/24 21:00 01/12/25 20:59 Metoprolol Succinate (TopROL XL) 100 mg DAILY PO 12/14/24 09:00 01/13/25 08:59 Miscellaneous Medication (Carboxymethylcellulose Sodium (Refresh Tears)) 1 drop QID PRN OP DRY EYES 12/13/24 10:30 12/13/24 10:18 DC Sodium Chloride 1,000 ml @ 0 mls/hr ONCE IV 12/13/24 11:30 01/12/25 11:29 12/13/24 14:38 1,000 MLS/HR Vitamin B Complex/ Vit C/Folic Acid (Nephrovite Tablet) 1 cap DAILY PO 12/14/24 09:00 01/13/25 08:59 Vital Signs (last 8hr) Date Time Temp Pulse Resp B/P (MAP) Pulse Ox O2 Delivery O2 Flow Rate FiO2 12/13/24 15:55 97.9 12/13/24 15:45 50 16 153/64 Room Air 12/13/24 15:30 50 16 153/59 Room Air 12/13/24 15:15 55 16 155/70 Room Air 12/13/24 15:00 50 16 142/63 Room Air 12/13/24 14:45 52 16 149/66 Room Air 12/13/24 14:30 49 16 158/66 Room Air 12/13/24 14:26 97.9 54 18 158/66 99 Room Air* 0 12/13/24 14:15 48 16 152/63 Room Air 12/13/24 14:00 48 16 145/53 Room Air 12/13/24 13:45 47 16 141/43 Room Air 12/13/24 13:30 54 16 135/50 Room Air 12/13/24 13:15 69 16 130/56 Room Air 12/13/24 13:00 64 16 136/53 Room Air 12/13/24 12:50 98.1 60 16 140/58 Room Air 12/13/24 12:45 98.1 65 16 148/61 Room Air 12/13/24 11:05 98.2 68 16 123/55 97 Room Air* 0 21 12/13/24 09:50 97.9 70 18 164/78 97 Room Air* 0 21 DIAGNOSTICS / RADIOLOGY: REASON: HX KIDNEY CANCER ORDERING PHYSICIAN: WALLY BYERS MD PROCEDURE: ABD PEL WO - CT ABDOMEN/PELVIS W/O CONTRAST Exam Type: CT ABDOMEN/PELVIS W/O CONTRAST Clinical Information: HX KIDNEY CANCER Comparison: March 08, 2023 CT Dose Index (CTDI): 10.20 mGy Dose Length Product (DLP): 530.00 total mGy-cm PROTOCOL: Routine noncontrast helical scanning of the abdomen and pelvis was performed at 5mm collimation. Findings: The right kidney is atrophic but otherwise unremarkable. The left kidney surgically absent. The lung bases are clear. The stomach is unremarkable. It shows no wall thickening. No gross ulceration is seen. It is not overly distended. There are no surrounding inflammatory changes. No wall lesions are identified to suggest cancer. The spleen is unremarkable. It is not enlarged. The pancreas again demonstrates a partially calcified lesion inferior to the tail region measuring at least 4.3 cm, probably representing a calcified pancreatic pseudocyst. This is stable since the examination of March 08, 2023. The gallbladder is unremarkable. It shows no cholelithiasis. The gallbladder wall is normal in thickness. There is no pericholecystic fluid. The is no acute or chronic inflammation noted. The adrenal glands are unremarkable. There is no enlargement. No lesions are noted. The liver is unremarkable. It shows no focal masses. The appendix is unremarkable. It shows no evidence of inflammation. No appendicolith is seen. The small bowel is unremarkable. There is no evidence of dilatation to suggest obstruction. No evidence of adynamic ileus is seen. There is no small bowel wall thickening to suggest enteritis. The colon is unremarkable. The urinary bladder is unremarkable. There is no wall thickening to suggest tumor or inflammation. There are no intraluminal calculi. There are no diverticula. There is no evidence of chronic bladder outlet obstruction. There is no evidence of urinary bladder distention to suggest urinary retention. The prostate is prominent. The bony and vascular structures are unremarkable for the patient's age. IMPRESSION: The pancreas again demonstrates a partially calcified lesion inferior to the tail region measuring at least 4.3 cm, probably representing a calcified pancreatic pseudocyst. This is stable since the examination of March 08, 2023. Other findings as described. This study was performed using dose reduction techniques to include automated exposure control and/or adjustment of the mA and/or kV according to patient size. DICTATED BY: SANDRA JARQUIN MD DATE: 12/13/24 1014 LABORATORY: [ ] Hematology Labs: Test 12/13/24 05:20 12/12/24 16:23 Range/Units White Blood Count 5.4 # 4.8-10.8 K/uL Red Blood Count 2.46 #L 4.50-6.20 MIL/uL Hemoglobin 8.1 #L 14.0-18.0 g/dL Hematocrit 24.8 #L 42-54 % Mean Corpuscular Volume 100.8 H 79-99 fL Mean Corpuscular Hemoglobin 32.9 27.0-33.0 pg Mean Corpuscular Hemoglobin Concent 32.7 32.0-36.0 g/dL Red Cell Distribution Width 16.3 H 11.0-15.5 % Platelet Count 147 130-400 K/uL Mean Platelet Volume 9.7 7.5-10.5 fL Immature Granulocyte % (Auto) 0.6 0-1 % Neutrophils (%) (Auto) 67.7 40.0-77.0 % Lymphocytes (%) (Auto) 21.6 21.0-51.0 % Monocytes (%) (Auto) 7.1 3.0-13.0 % Eosinophils (%) (Auto) 2.6 0.0-8.0 % Basophils (%) (Auto) 0.4 0.0-5.0 % Neutrophils # (Auto) 3.7 1.8-7.7 K/uL Lymphocytes # (Auto) 1.2 1.0-4.8 K/uL Monocytes # (Auto) 0.4 0.1-1.0 K/uL Eosinophils # (Auto) 0.14 0.00-0.70 K/uL Basophils # (Auto) 0.02 0.00-0.20 K/uL Absolute Immature Granulocyte (auto 0.03 0-1 K/uL Nucleated Red Blood Cells 0.4 H 0.0-0.19 % Red Blood Cell Morphology See comments Chemistry Labs: Test 12/13/24 05:20 12/12/24 16:23 Range/Units Sodium Level 138 136-145 mmol/L Potassium Level 5.3 H 3.5-5.1 mmol/L Chloride Level 101 101-111 mmol/L Carbon Dioxide Level 29 21-32 mmol/L Blood Urea Nitrogen 36 H 7-18 mg/dL Creatinine 10.1 *H 0.5-1.3 mg/dL Glomerular Filtration Rate Calc 5 >90 mL/min Random Glucose 107 H 70-105 mg/dL Total Calcium 8.5 8.5-10.1 mg/dL Total Bilirubin 0.8 0.2-1.0 mg/dL Aspartate Amino Transf (AST/SGOT) 34 10-37 U/L Alanine Aminotransferase (ALT/SGPT) 29 12-78 U/L Alkaline Phosphatase 120 50-136 U/L Total Protein 6.9 6.0-8.3 g/dL Albumin 3.8 3.5-5.0 g/dL Ferritin 876 H 30-400 ng/mL Vitamin B12 Level 657 193-986 pg/mL Vitamin D 25-Hydroxy 48.7 30.0-100.0 ng/mL Coagulation Labs: Test 12/12/24 16:23 Range/Units Prothrombin Time 10.9 9.6-11.6 SEC Prothromb Time International Ratio 1.03 0.85-1.15 Activated Partial Thromboplast Time 22.7 L 26.3-35.5 SEC ASSESSMENT: Anemia requiring PRBC transfusion End-stage renal disease Hypertension Diabetes mellitus type 2 Atrial fibrillation History of renal cell carcinoma S/p left nephrectomy PLAN: Labs and Diagnostics/ Radiology personally reviewed and interpreted by myself and supervising physician We have reviewed dialysis and external records in detail Continue dialysis schedule Monday Recommend follow up for possible bleed 1.5 L fluid restriction Continue to monitor H&H Epogen on dialysis days, as needed Continue with frequent monitoring of renal function, anemia, and electrolytes Order CBC, BMP, and electrolytes in the morning May use Dilaudid 0.5 mg IV every 6 hours as needed for severe pain Maintain glucose between 100-180mg/dl, AccuCheks QC and HS Monitor blood pressure adjust medication doses as needed Maintain normotensive state; keep systolic blood pressure between 110-160 Strict intake, output, and daily weight should be monitored Please renally adjust medications. Avoid nephrotoxics and nonsteroidal drugs. We will continue to monitor the patient closely We have discussed with the other team physicians in detail about the care plan Thank you for allowing us to participate in the care of this patient ATTESTATION BY PHYSICIAN I have seen and examined the patient. I reviewed the documentation, medical decision making, and treatment plan as noted by the mid-level provider above. I agree with the findings and plan of care. BHATROYAL GANDHI MD, [facility] [employer] Dec 13, 2024 16:45
--- NOTE | 2024-12-13 16:50 | NUR ---
REPORT CALLED TO LATRELL MAX LVN AT [facility], [facility] [employer] DEVELOPER WAS SENT FOR TRANSPORT OF PT BACK TO FACILITY.
[2024-12-13] MEDS ORDERED: leveTIRACEtam 500 MG TABLET PO SCH (21:00)
[2024-12-13] MEDS ORDERED: INSULIN GLARgine 100 UNITS/ML 10 ML VIAL SQ SCH (21:00)
[2024-12-13] MEDS ORDERED: atorVAStatin 10 MG TABLET PO SCH (21:00)
[2024-12-13] MEDS ORDERED: LISINOPRIL 40 MG TABLET PO SCH (21:00)
[2024-12-13] MEDS ORDERED: doNEPEZil HCL 5 MG TAB PO SCH (21:00)
--- NOTE | 2024-12-13 22:03 | PN ---
NEPHROLOGY NOTE SUBJECTIVE: The patient has been evaluated and seen for dialysis, seen several times. The patient has renal failure, severe anemia requiring transfusion, and no other associated finding. The patient has no other aggravating or relieving factors. PHYSICAL EXAMINATION: VITAL SIGNS: Blood pressure is 160/68, pulse 53, respiratory rate is 16. HEENT: Head is atraumatic. Pupils are round and reactive. Sclerae are anicteric. Conjunctivae not pale. Oral mucosa is not dry. NECK: Supple. No masses or bruits. Thyroid is palpable. Neck has no bruits. LABORATORY DATA: Have been reviewed and old records reviewed. IMAGING STUDIES: Personally reviewed. PROBLEMS: Renal failure and anemia. PLAN: Continue dialysis support. Continue monitoring of renal function. Continue monitoring of electrolytes. Intake, output, weight will be monitored. Nonsteroidal drugs to be avoided. Dose of medicine to be adjusted and we will follow up closely. The patient was evaluated and seen for dialysis and seen several times today. I have discussed with other team members. TID: [id number] RECEIPT: [id number]
--- NOTE | 2024-12-13 22:51 | DS ---
Discharge Summary DIAGNOSE(S): [Anemia unknown etiology] HOSPITAL COURSE SUMMARY: [Patient presented with severe symptomatic anemia transfused blood hemoglobin improved to 8.1 no obvious active bleeding was noted and was discharged back to the custodial other medical problems remained stable CT of abdomen and given history of renal cell carcinoma was negative] MEDIA MARKETING SPECIALIST(S): [Nephrology] PROCEDURE(S)/TREATMENT(S): [Hemodialysis] PROBLEM(S): [] FOLLOW-UP TEST(S): [None] DISCHARGE INSTRUCTIONS: [Follow up with PCP in 1-2 days] Home Meds Reported Medications Clonidine HCl (Clonidine HCl) 0.1 Mg Tablet, 1 TAB PO Q4HPRN PRN for IF SBP GREATER THAN 180 for 30 Days, #30 TAB 0 Refills 12/12/24 Benzocaine/Menthol (Cepacol Sore Throat Lozenge) 15 Mg-3.6 Mg Lozenge, 1 TAB PO Q4H for sore throat for 3 Days, #18 TAB 0 Refills 12/12/24 Lactulose (Lactulose) 10 Gram/15 Ml Solution, 30 ML PO TID PRN for CONSTIPATION, #500 ML 0 Refills 12/12/24 Cholecalciferol (Vitamin D3) (Vitamin D3) 25 Mcg (1000 Unit) Capsule, 1 CAP PO DAILY for 30 Days, #30 CAP 0 Refills 12/12/24 Famotidine (Famotidine) 20 Mg Tablet, 1 TAB PO DAILY for 30 Days, #60 TAB 0 Refills 12/12/24 Aspirin (Aspirin) 81 Mg Tab.chew, 1 TAB PO DAILY for 30 Days, #30 TAB 0 Refills 12/12/24 Folic Acid/Vitamin B Comp W-C (Esperanza-Shyam Tablet) 0.8 Mg Tablet, 1 TAB PO DAILY for 30 Days, #30 TAB 0 Refills 12/12/24 Metoprolol Tartrate (Metoprolol Tartrate) 100 Mg Tablet, 1 TAB PO DAILY for 30 Days, #60 TAB 0 Refills 12/12/24 Levetiracetam (Keppra) 500 Mg Tablet, 1 TAB PO BID for 30 Days, #60 TAB 0 Refills 12/12/24 Amlodipine Besylate (Amlodipine Besylate) 5 Mg Tablet, 1 TAB PO DAILY for 30 Days, #30 TAB 0 Refills 12/12/24 Lisinopril (Lisinopril) 40 Mg Tablet, 40 TAB PO HS for 30 Days, #30 TAB 0 Refills 12/12/24 Donepezil HCl (Aricept 5Mg Tab) 5 Mg Tab, 1 TAB PO HS for 30 Days, #30 TAB 0 Re fills 12/12/24 Atorvastatin Calcium (Atorvastatin Calcium) 10 Mg Tablet, 1 TAB PO HS for 30 Days, #30 TAB 0 Refills 12/12/24 Acetaminophen (Acetaminophen) 325 Mg Tablet, 1 TAB PO Q4HPRN PRN for pain or fever for 24 Days, #100 TAB 0 Refills 12/12/24 Acetaminophen with Codeine (Acetaminophen-Cod #3 Tablet) 300 Mg-30 Mg Tablet, 1 TAB PO Q6HPRN PRN for pain for 7 Days, #28 TAB 0 Refills 12/12/24 Melatonin (Melatonin) 3 Mg Capsule, 1 CAP PO HS for 30 Days, #30 CAP 0 Refills 12/12/24 Trazodone HCl (Trazodone HCl) 50 Mg Tablet, 1 TAB PO HS for 30 Days, #30 TAB 0 Refills 12/12/24 Insulin Glargine,Hum.rec.anlog (Lantus Solostar) 100 Unit/Ml (3 Ml) Insuln.pen, 10 UNIT SQ HS for 30 Days, #5 ML 0 Refills 12/12/24 Guaifenesin (Cough Syrup) 100 Mg/5 Ml Liquid, 100 MG PO Q6HPRN PRN for COUGH 12/12/24 Calcium Carbonate (Tums 500 mg Chew Tab) 200 Mg Calcium (500 Mg) Tab.chew, 2 TAB PO BID PRN for GI UPSET/UPSET STOMACH for 7 Days, #56 TAB 0 Refills 12/12/24 Sevelamer Carbonate (Renvela Pwdr) 0.8 Gram Powder, 4000 MG PO TID, APPL 12/12/24 Carboxymethylcellulose Sodium (Refresh Tears) 0.5 % Drops, 1 DROP OP QID PRN for DRY EYES for 30 Days, #15 ML 0 Refills 12/12/24 Prednisolone Acetate/Pf (Prednisolone Acet 1% Eye Drop) 1 % Drops.susp, 1 DROP OS QID for 30 Days, #5 ML 0 Refills 12/12/24 Amlodipine Besylate (Amlodipine Besylate) 10 Mg Tablet, 1 TAB PO HS 09/18/23 Metoprolol Succinate (Metoprolol Succinate) 100 Mg Tab.er.24h, 1 TAB PO DAILY 09/18/23 Zolpidem Tartrate (Ambien) 10 Mg Tablet, 10 MG HS for INSOMNIA 09/18/23 Lisinopril (Lisinopril) 20 Mg Tablet, 40 MG PO DAILY, TAB 03/06/23 Trazodone HCl (Trazodone HCl) 100 Mg Tablet, 100 MG PO HS, TAB TAKE 1 AND 1/2 TABLET AT HS 03/22/22 WALLY BYERS MD Dec 13, 2024 22:51
[2024-12-14] MEDS ORDERED: FAMOTIDINE 20MG TAB PO SCH (09:00)
[2024-12-14] MEDS ORDERED: metOPROLol sucCINATE 50 MG TAB.SR.24H PO SCH (09:00)
[2024-12-14] MEDS ORDERED: amLODIPine 5 MG TAB PO SCH (09:00)
[2024-12-14] MEDS ORDERED: ASPIRIN 81MG CHEW TAB PO SCH (09:00)
[2024-12-14] MEDS ORDERED: Vitamin B Complex/Vit C/Folic Acid PO SCH (09:00)
[2024-12-14 17:11] LABS: HEPATITIS B CORE AB TOTAL Non-Reactive (Nonreactive); HEPATITIS B SURFACE ANTIGEN Non-Reactive (Nonreactive)
== END 2024-12-13 16:58 | DRG 811 ==
LOC: EDH 15:38 → EDHIP 19:00
PROVIDERS: ADMIT Internal Medicine; ATTEND Internal Medicine
PROC: 30233N1 Transfusion of Nonautologous Red Blood Cells into Peripheral Vein, Percutaneous Approach (ICD-10-PCS; principal; 2024-12-12)
PROC: 5A1D70Z Performance of Urinary Filtration, Intermittent, Less than 6 Hours Per Day (ICD-10-PCS; 2024-12-13)
DX: D64.9 Anemia, unspecified (principal); N18.6 End stage renal disease; E87.1 Hypo-osmolality and hyponatremia; I12.0 Hypertensive chronic kidney disease with stage 5 chronic kidney disease or end stage renal disease; E11.22 Type 2 diabetes mellitus with diabetic chronic kidney disease; E78.00 Pure hypercholesterolemia, unspecified; Z85.528 Personal history of other malignant neoplasm of kidney; I48.91 Unspecified atrial fibrillation; Z86.73 Personal history of transient ischemic attack (TIA), and cerebral infarction without residual deficits; Z88.0 Allergy status to penicillin; Z90.5 Acquired absence of kidney; Z99.2 Dependence on renal dialysis; Z79.899 Other long term (current) drug therapy
CPT/HCPCS: 36415; 74176; 80048; 80053; 82306; 82607; 82668; 82728; 85025; 85610; 85730; 86704; 86706; 86850; 86900; 86901; 86923; 87340; 90935; 93005; G0378; P9016